=== PATIENT | male | born 1985 | race Caucasian/White ===

== ENCOUNTER 2018-01-25 15:07 | Emergency (ER) | payer BC ==
[2018-01-25] MEDS ORDERED: Meclizine TAB* 12.5 MG PO ONE (16:44)
--- NOTE | 2018-01-25 16:47 | ED ---
Dizziness - HPI Summary HPI Summary: This patient is a 32 year old M presenting to ED with a chief complaint of N/V since 1000 this morning. The patient pushed an ear plug really far into his ear this morning. When he pulled it out, he reports that his ear really hurt. Then an hour after, he started having these sx. The patient rates the pain 0/10 in severity. Symptoms aggravated by dizziness (room spinning). Symptoms alleviated by nothing. Patient denies weakness, numbness, abdominal pain, ear infection, blood in the ear from the ear plug, or throat infection. - History Of Current Complaint Chief Complaint: EDAbdPain Stated Complaint: N/V/DIZZINESS/HEADACHE Time Seen by Provider: 01/25/18 16:21 Hx Obtained From: Patient Onset/Duration: Still Present, Suddenly - since 1000 this morning Timing: Hours Severity Currently: None Character: Room Spinning, Dizzy Aggravating Factor(s): Other - dizziness Alleviating Factor(s): Nothing Associated Signs And Symptoms: Positive: Nausea, Vomiting, Other: - This patient is a 32 year old M presenting to ED with a chief complaint of N/V since 1000 this morning. The patient pushed an ear plug really far into his ear this morning. When he pulled it out, he reports that his ear really hurt. Then an hour after, he started having these sx. The patient rates the pain 0/10 in severity. Symptoms aggravated by dizziness (room spinning). Symptoms alleviated by nothing. Patient denies weakness, numbness, abdominal pain, ear infection, blood in the ear from the ear plug, or throat infection. - Allergies/Home Medications Allergies/Adverse Reactions: Allergies Allergy/AdvReac Type Severity Reaction Status Date / Time No Known Allergies Allergy Verified 01/25/18 16:32 PMH/Surg Hx/FS Hx/Imm Hx Endocrine/Hematology History: Denies: Hx Diabetes Cardiovascular History: Denies: Hx Congestive Heart Failure, Hx Hypertension History: Denies: Hx Renal Disease - Surgical History Surgery Procedure, Year, and Place: ACL REPAIR. Partial bladder removal - Immunization History Immunizations Up to Date: Yes Infectious Disease History: No Infectious Disease History: Denies: History Other Infectious Disease, Traveled Outside the [place] in Last 30 Days - Family History Known Family History: Negative: Diabetes - Social History Alcohol Use: Occasionally Substance Use Type: Reports: None Smoking Status (MU): Never Smoked Tobacco Type: Smokeless Tobacco Amount Used/How Often: 1 can/day Review of Systems Positive: Ear Ache - after pulling ear plug out of his ear this morning, an hour before onset of sx, Other - denies ear infection, blood in ear, and throat infection Positive: Vomiting, Nausea. Negative: Abdominal Pain Negative: Weakness, Numbness All Other Systems Reviewed And Are Negative: Yes Physical Exam - Summary Physical Exam Summary: Appearance: Well appearing, no pain distress Skin: warm, dry, reflects adequate perfusion Head/face: normal Eyes: EOMI, JOSE DANIEL ENT: normal Neck: supple, non-tender Respiratory: CTA, breath sounds present Cardiovascular: RRR, pulses symmetrical Abdomen: non-tender, soft Bowel: present Musculoskeletal: normal, strength/ROM intact Neuro: sensory motor intact, A&Ox3. Reeling/spinning sensation when he moves his head GCS: 15 Triage Information Reviewed: Yes Vital Signs On Initial Exam: Initial Vitals Temp Pulse Resp BP Pulse Ox 97.1 F 76 17 145/85 98 01/25/18 15:11 01/25/18 15:11 01/25/18 15:11 01/25/18 15:11 01/25/18 15:11 Vital Signs Reviewed: Yes Diagnostics - Vital Signs Vital Signs Temp Pulse Resp BP Pulse Ox 01/25/18 15:11 97.1 F 76 17 145/85 98 - Laboratory Result Diagrams: 01/25/18 16:54 01/25/18 16:54 Lab Statement: Any lab studies that have been ordered have been reviewed, and results considered in the medical decision making process. - CT Brain CT CT Interpretation Completed By: Radiologist - There is no evidence of intracranial mass or hemorrhage noted. ED physician has reviewed this radiology report. - EKG 1726 Cardiac Rate: NL - 69 BPM EKG Rhythm: Sinus Rhythm EKG Interpretation: No acute changes Re-Evaluation - Re-Evaluation First Eval Re-Evaluation Time: 17:53 Comment: Discussed results with the patient and plan for discharge. Patient understands and agrees. Dizzy Course/Dx - Course Assessment/Plan: This patient is a 32 year old M presenting to ED with a chief complaint of N/V since 1000 this morning. Blood work/UA obtained. In the ED course, the patient was given Meclizine. Brain CT reveals there is no evidence of intracranial mass or hemorrhage noted. The patient will be discharged. Patient understands and agrees with this plan. - Diagnoses Differential Diagnosis/HQI/PQRI: Benign Paroxysmal Positional Vertigo, Dysrhythmia, Transient Ischemic Attack, Other - vertigo Provider Diagnoses: Vertigo Discharge - Sign-Out/Discharge Documenting (check all that apply): Patient Departure - discharge - Discharge Plan Condition: Stable Disposition: HOME Prescriptions: Meclizine TAB* [Antivert 12.5 TAB*] 25 mg PO TID #20 tab Ondansetron ODT TAB* [Zofran 4 MG Odt TAB*] 4 mg PO Q6H PRN #15 tab.odt MDD 3 PRN Reason: Vomiting Patient Education Materials: Vertigo (ED) Forms: *Work Release Referrals: Cristal Cantrell RN [Primary Care Provider] - 3 Days Additional Instructions: PLEASE RETURN TO THE ED FOR ANY NEW OR WORSENING SYMPTOMS. - Billing Disposition and Condition Condition: STABLE Disposition: Home - Attestation Statements Document Initiated by Scribe: Yes Documenting Scribe: Dion Caceres Provider For Whom Zain is Documenting (Include Credential): Orlando Bella MD Scribe Attestation: Dion Alston, scribed for Orlando Bella MD on 01/25/18 at 1822. Scribe Documentation Reviewed: Yes Provider Attestation: The documentation as recorded by the Dion diaz accurately reflects the service I personally performed and the decisions made by , Orlando Bella MD
[2018-01-25 17:00] LABS: ABS Basophils 0.1 10^3/ul (0-0.2); ABS Eosinophils 0 10^3/ul (0-0.6); ABS Monocytes 0.4 10^3/ul (0-0.8); ABS Nucleated RBC 0.1 10^3/ul; Eosinophil % 0 % (0-6); Hematocrit 45 % (42-52); Hemoglobin 15.7 g/dl (14.0-18.0); Lymphocyte % 6.9 % (25-47); Mean Corpuscular HGB Conc 35 g/dl (31-36); Mean Corpuscular Hemoglobin 31 pg (27-31); Mean Corpuscular Volume 88 fL (80-94); Mean Platelet Volume 7.9 um3 (7.4-10.4); Nucleated Red Blood Cells % 0.6; Platelet Count 220 10^3/ul (150-450); Red Blood Count 5.12 10^6/ul (4.00-5.40); Red Cell Distribution Width 13 % (10.5-15); White Blood Count 14.5 10^3/ul (3.5-10.8)
[2018-01-25 17:08] LABS: INR 0.98 (0.77-1.02)
[2018-01-25 17:28] LABS: EGFR Non-African American 77.9 (>60)
--- NOTE | 2018-01-25 17:49 | RAD ---
Indication: Dizziness. CT of the brain performed without IV contrast. Ventricular structures are midline. No midline shift is noted. The extra-axial spaces are unremarkable. There is no evidence of intracranial mass or hemorrhage. No other high or low density lesions identified. Mastoid air cells and paranasal sinuses are unremarkable. IMPRESSION: There is no evidence of intracranial mass or hemorrhage noted.
[2018-01-25 18:20] VITALS: BP 120/80
== END 2018-01-25 18:23 | disposition home or self-care (01) ==
LOC: ED 15:07
DX: R42 Dizziness and giddiness (principal); R11.2 Nausea with vomiting, unspecified
CPT/HCPCS: 36415; 70450; 80053; 84484; 85025; 85610; 85730; 93005; 99283

== ENCOUNTER 2019-06-21 07:51 | Emergency (ER) | payer BC ==
--- NOTE | 2019-06-21 09:50 | UC ---
Abdominal Pain Male HPI - HPI Summary HPI Summary: 33-year-old male comes in with chief complaint of left lower quadrant abdominal pain. Started about 4 days ago. No fevers or chills. No urinary symptoms no testicular scrotal pain. Reports normal appetite normal bowel movements. No known trauma. Pain is worse when he first wakes up in the morning and he gets up out of bed or he's been sitting and then he goes to stand. Patient has not felt any mass in the area. Pain is not worse with bowel movements. Patient has had bladder surgery in the past otherwise no other abdominal surgeries. - History of Current Complaint Chief Complaint: UCAbdominalPain Stated Complaint: LOWER LT ABDOMINAL PAIN Time Seen by Provider: 06/21/19 09:07 Pain Intensity: 4 - Allergies/Home Medications Allergies/Adverse Reactions: Allergies Allergy/AdvReac Type Severity Reaction Status Date / Time No Known Allergies Allergy Verified 06/21/19 08:02 Home Medications: Home Medications Sulfamethox/Trimethoprim DS* [Bactrim DS 800/160 TAB*] 1 tab PO BID #14 tab [Rx] PMH/Surg Hx/FS Hx/Imm Hx Previously Healthy: Yes - Surgical History Surgical History: Yes Surgery Procedure, Year, and Place: ACL REPAIR. Partial bladder removal - Family History Known Family History: Negative: Diabetes - Social History Alcohol Use: Occasionally Substance Use Type: None Smoking Status (MU): Never Smoked Tobacco Type: Smokeless Tobacco Amount Used/How Often: 1 can/day Review of Systems All Other Systems Reviewed And Are Negative: Yes Constitutional: Positive: Negative Skin: Positive: Negative Eyes: Positive: Negative ENT: Positive: Negative Respiratory: Positive: Negative Cardiovascular: Positive: Negative Gastrointestinal: Positive: Abdominal Pain, Other - SEE HPI Genitourinary: Positive: Negative Motor: Positive: Negative Neurovascular: Positive: Negative Musculoskeletal: Positive: Negative Neurological/Mental Status: Positive: Negative Psychological: Positive: Negative Is Patient Immunocompromised?: No Physical Exam Triage Information Reviewed: Yes Appearance: Well-Appearing, Well-Nourished, Pain Distress - MILD WITH LLQ EXAM AND SITTING UP Vital Signs: Initial Vital Signs Temp 98 F 06/21/19 07:59 Pulse 80 06/21/19 07:59 Resp 18 06/21/19 07:59 BP 135/89 06/21/19 07:59 Pulse Ox 100 06/21/19 07:59 Vital Signs Reviewed: Yes Eye Exam: Normal Eyes: Positive: Conjunctiva Clear Neck: Positive: Supple Respiratory: Positive: Lungs clear, Normal breath sounds, No respiratory distress Abdomen Description: Positive: Other: - Patient is tender to palpation left lower quadrant about midpoint between the left inguinal canal and the umbilicus. I do not appreciate any mass. There is no erythema on the skin. The umbilicus itself is nontender to palpation. The left inguinal canal is nontender to palpation. No right lower quadrant abdominal tenderness there is no tenderness elsewhere in the abdomen. Bowel Sounds: Positive: Present Musculoskeletal: Positive: Strength Intact, ROM Intact Neurological: Positive: Alert, Muscle Tone Normal Psychological: Positive: Age Appropriate Behavior Skin Exam: Normal Abd Pain Male Course/Dx - Course Course Of Treatment: High Density Press Laborer: Valeria Diaz S ([id number]) Associate Scientist: PRANAV (PRANAV) Report Date: 06/21/2019 10:02:00 Report Status: Final Start of Report Content Patient Name: PELON VUONG Medical Record#: [id number] Ordering Physician: Oliver Lucio MD Acct.#: [id number] : 10/1985 Age: 33 Sex: M Location: [facility] Exam Date: 06/21/19917 ADM Status: REG ER Order Information: CT ABD/PEL W/O Accession Number: [id number] CPT: 45148 Indication: Abdominal pain. CT of the abdomen and pelvis was performed after oral and IV contrast administration. Coronal and sagittal reconstructed images were obtained. Liver is normal in size. No focal lesions or intrahepatic duct dilatation is noted. The gallbladder demonstrates no calcified gallstones. Common duct is not dilated. The pancreas demonstrates no mass or pancreatic duct dilatation. The spleen is normal in size. No adrenal lesions are noted. The kidneys demonstrate no hydronephrosis. The retroperitoneal lymphadenopathy is noted. Small bowel demonstrates no abnormal dilatation. The colon is filled with stool. No hernias are identified. There is suggestion of irregularity in the partially collapsed urinary bladder. Underlying urinary tract infection should BE considered. Correlation with urinalysis should BE considered. 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 Wall thickening likely partially collapsed urinary bladder is noted in the possibility of urinary tract infection should BE considered. Correlation with urinalysis should be considered. <Electronically signed by Valeria Diaz MD in [place]> 06/21/19957 Dictated By: Valeria Diaz MD Dictated Date/Time: 06/21/19949 Transcribed Date/Time: 06/21/19949 Copy to: CC:Cristal EASONP; Oliver Lucio MD Imaging - [facility] [address] [place] [address] ph ([phone]) ph ([phone]) ph ) End of Report Content I discussed the CT and urine results with the patient. At this time the patient has no urinary symptoms or bowel symptoms. Potential causes for the pain could be musculoskeletal cause. Because of the history of the urachal remnant surgery and the findings on CT, the urachal remnant could be a source of the pain. We'll treat with Bactrim DS for the possibility of UTI. Patient had his bladder surgery in [place] and I recommended that he follow-up with his surgeon in [place] for further evaluation of the possibility of the rectal remnant being the cause. If he does not improve but does not worsen he can also follow up locally with a general surgeon. We discussed that if anything got worse at anytime with pain fevers chills he felt ill change in bowel or bladder or any other concerns he needed to get evaluated right away the emergency department. - Differential Dx/Clinical Impression Provider Diagnosis: Left lower quadrant abdominal pain Discharge ED - Sign-Out/Discharge Documenting (check all that apply): Patient Departure All imaging exams completed and their final reports reviewed: Yes - Discharge Plan Condition: Stable Disposition: HOME Prescriptions: Sulfamethox/Trimethoprim DS* [Bactrim DS 800/160 TAB*] 1 tab PO BID #14 tab Patient Education Materials: Acute Abdominal Pain (ED) Referrals: Arden BLACKMON,Cristal [Primary Care Provider] - Kerrie Walls MD [Medical Doctor] - Additional Instructions: FOLLOW UP WITH SURGERY, DR WALLS, HERE IN [place] OR FOLLOW UP WITH YOUR SURGEON IN [place]. GO TO THE EMERGENCY DEPARTMENT IF NOT IMPROVED OR WORSE; PAIN, FEVER, CHANGE IN BOWEL OR BLADDER, YOU FEEL ILL OR ANY QUESTIONS OR CONCERNS. - Billing Disposition and Condition Condition: STABLE Disposition: Home
[2019-06-21 10:04] VITALS: BP 146/90
== END 2019-06-21 10:43 | disposition home or self-care (01) ==
LOC: UCEAST 07:51
DX: R10.32 Left lower quadrant pain (principal)
CPT/HCPCS: 74176; 81003; 87086; 99212; G0463